=== PATIENT | female | born 1990 | race Caucasian/White ===

== ENCOUNTER 2017-01-16 17:48 | Emergency (ER) | payer OTHER ==
[~2017-01-16 17:48] MED LIST: ACETAMINOPHEN; ALBUTEROL INHALER; ALBUTEROL17 GM INH; ALBUTEROL20 ml INH; ALEVE220 M1; AMOXICILLIN PO; AZITHROMYCIN250 MG PO; BACTRIM DS TABL1 TA1 PO; BACTRIM DS TABL1 TA2 PO; BENADRYL25 MG PO; CILOXAN5 ML OP; CLARITIN D; DELTASONE20 MG; DELTASONE20 MG PO; HYDROMET SYRUP480 ML PO; IBUPROFEN; KEFLEX500 M1 PO; KEFLEX500 M2 PO; MACROBID100 MG PO; MEDROL4 MG/DOSE- PO; MORGIDOX100 MG PO; MOTRIN600 M1 PO; NO MEDICATIONS; OCUFLOX10 ML OP; PHENERGAN25 MG PO; PREDNISONE PO; PREDNISONE10 MG/DOSE; PREDNISONE50 MG PO; PRENATAL1 TA1; PROVENTIL17 GM; ROBITUSSIN A-C S5 ML PO; ROBITUSSIN A-C10 ML PO; SINGULAIR PO; TESSALON PERLE100 M1 PO; TRIAMCINOLONE A15 G2 TOP; ZITHROMAX PO; ZOFRAN ODT4 MG PO
== END 2017-01-16 18:42 | disposition home or self-care (01) ==
LOC: SED 17:48
DX: J45.21 Mild intermittent asthma with (acute) exacerbation (principal); J06.9 Acute upper respiratory infection, unspecified; Z88.1 Allergy status to other antibiotic agents
CPT/HCPCS: 87651; 99283

== ENCOUNTER 2017-01-22 14:51 | Emergency (ER) | payer OTHER ==
--- NOTE | ~2017-01-22 | CR72 ---
[facility]. [facility] A Service of [facility] RADIOLOGY TEXT RESULTS PATIENT: KENNY TRONCOSO LOCATION: SED : 86 UNIT #: [id number] AGE: [address]: Kely Lyles SEX: F ORDER DR: [id number] [address] [id number] E MR#: [id number] Acc #: [id number] NAME: KENNY TRONCOSO : 1990 SEX: F STUDY DATE/TIME: 01/22/2017 15:00 UNIT: SED ROOM: STUDY DESCRIPTION: CR Chest Single View Portable Attending Physician: Kely Lyles Pa-C Ordering Physician: Benjamín Ríos M.D. Primary Care Physician: [facility] MEDICAL IMAGING REPORT This report is preliminary unless electronic signature is present. EXAM Portable chest 01/22/2017 HISTORY 26-year-old woman, congestion, wheezing, cough and fever. Symptoms approximately 1 week duration. History of asthma. COMPARISON Chest 05/07/2016. FINDINGS AP upright portable chest demonstrates normal cardiac size and configuration. Lungs are clear with somewhat reduced inspiration at this time. Costophrenic angles are partially obscured by the overlying soft tissues. IMPRESSION No acute chest finding. Negative. Dictated by... Rashel Ansari M.D. THIS IS AN ELECTRONICALLY VERIFIED REPORT Rashel Ansari M.D. at 01/25/2017 8:12 AM Keith TD: 01/22/2017 18:10 JOB #: [id number] MEDICAL IMAGING REPORT Page 1 of 1
== END 2017-01-22 16:00 | disposition home or self-care (01) ==
LOC: SED 14:51
DX: J45.909 Unspecified asthma, uncomplicated (principal); H10.9 Unspecified conjunctivitis; Z88.8 Allergy status to other drugs, medicaments and biological substances
CPT/HCPCS: 71010; 94640; 99283